=== PATIENT | male | born 1990 | race Native Hawaiian/Other Pacific Islander ===

== ENCOUNTER 2019-12-17 16:54 | Outpatient (CLI) | payer OTHER | END 2019-12-17 22:37 | disposition home or self-care (01) | LOC: RAD 16:54 | DX: M54.5 Low back pain (principal); M25.551 Pain in right hip ==

== ENCOUNTER 2020-03-01 23:21 | Emergency (ER) | payer OTHER ==
[~2020-03-01] VITALS: Ht 180.3 cm; Wt 152.0 kg
[2020-03-02 00:49] LABS: PLATELET COUNT 177 K/uL (142-355)
[2020-03-02 03:11] VITALS: BP 125/74; TEMP 98.3
== END 2020-03-02 03:11 | disposition home or self-care (01) ==
LOC: ED 23:21
PROVIDERS: Family Medicine
DX: K57.32 Diverticulitis of large intestine without perforation or abscess without bleeding (principal)
CPT/HCPCS: 36415; 80053; 81000; 85027; 96365; 96374; 99284; J1885; Q9963

== ENCOUNTER 2020-10-15 13:59 | Outpatient (CLI) | payer OTHER ==
[~2020-10-15] VITALS: Ht 180.3 cm; Wt 147.4 kg
== END 2020-10-15 21:16 | disposition home or self-care (01) ==
LOC: INF 13:59
PROVIDERS: ATTEND Family Medicine
DX: Z23 Encounter for immunization (principal); U07.1 COVID-19
CPT/HCPCS: 96365; M0244